=== PATIENT | male | born 1980 | race Caucasian/White ===

== ENCOUNTER 2022-05-03 11:43 | Outpatient (REF) | payer OTHER, SELFPAY ==
[2022-05-03 14:39] LABS: Influenza A PCR NEGATIVE (Negative); Influenza B PCR NEGATIVE (Negative); Resp Syncy Virus RNA Qual PCR NEGATIVE (Negative); SARS COV2 PCR INHOUSE POSITIVE (Negative)
== END 2022-05-03 11:44 | disposition home or self-care (01) ==
LOC: HO.LAB 11:43
PROVIDERS: Visit Provider Family Medicine
DX: Z20.822 Contact with and (suspected) exposure to COVID-19 (principal); B34.9 Viral infection, unspecified; R05.9 Cough, unspecified
CPT/HCPCS: 0241U

== ENCOUNTER 2022-05-29 09:13 | Outpatient (REF) | payer OTHER, SELFPAY ==
[2022-05-29 11:07] LABS: MANUAL DIFF FLAG NO
[2022-05-29 11:11] LABS: Basophils Percent Auto 0.9 % (0-2); Eosinophils Absolute Auto 0.2 X10*3/uL (0.0-0.4); Eosinophils Percent Auto 3.9 % (0-4); Hematocrit 50.3 % (42.0-52.0); Imm Gran Abs Auto 0.01 X10*3/uL (0.00-0.03); Imm Gran Pct Auto 0.2 % (0.0-0.4); Lymphocytes Absolute Auto 1.5 X10*3/uL (1.2-4.9); Lymphocytes Percent Auto 32.4 % (20-40); Mean Corpuscular HGB Conc 31.8 g/dl (31.0-36.0); Mean Corpuscular Hemoglobin 28.5 pg (27.0-33.0); Mean Corpuscular Volume 89.5 fL (80.0-98.0); Mean Platelet Volume 9.5 fL (9.4-12.4); Monocytes Absolute Auto 0.5 X10*3/uL (0.1-1.2); Neutrophils Absolute Auto 2.4 x10*3/uL (2.0-8.3); Neutrophils Percent Auto 52.6 % (45-73); Platelet Count 194 X10*3/uL (160-400); Red Blood Count 5.62 X10*6/uL (4.60-5.80); Red Cell Distribution Width 13.7 % (11.0-16.0); White Blood Count 4.6 X10*3/uL (4.8-10.8)
[2022-05-29 11:38] LABS: Alanine Aminotransferase 33 U/L (0-40); Albumin Level 4.3 g/dL (3.5-5.0); Alkaline Phosphatase 76 U/L (39-117); Anion Gap 14 (12-20); Aspartate Amino Transferase 23 U/L (5-37); Bilirubin Total 0.6 mg/dL (0.0-1.0); Blood Urea Nitrogen 19 mg/dL (9-16); Calcium 9.6 mg/dL (8.4-10.2); Carbon Dioxide 27 mmol/L (22-29); Chloride 107 mmol/L (96-108); Cholesterol 198 mg/dL; Estimated Glomerular Filt Rate > 60; Glucose Fasting 94 mg/dL (60-99); HDL Cholesterol 59 mg/dL; LDL Cholesterol Calculated 121 mg/dl; Sodium 143 mmol/L (135-145); Total Protein 7.3 g/dL (6.5-8.0); Triglycerides 94 mg/dL
[2022-05-29 11:45] LABS: Prostate Specific Antigen Scr 0.46 ng/mL (<0.05-4.0); TSH reflex Free T4 1.84 uIU/mL (0.32-4.0)
== END 2022-05-29 09:14 | disposition home or self-care (01) ==
LOC: HO.WFDLDS 09:13
PROVIDERS: Visit Provider Family Medicine
DX: Z00.00 Encounter for general adult medical examination without abnormal findings (principal); I82.401 Acute embolism and thrombosis of unspecified deep veins of right lower extremity; Z12.5 Encounter for screening for malignant neoplasm of prostate
CPT/HCPCS: 36415; 80053; 80061; 84153; 84443; 85025

== ENCOUNTER 2023-05-05 09:20 | Outpatient (AMB) | payer OTHER, SELFPAY ==
[2023-05-05 09:31] VITALS: BP 118/72; PULSE 83; O2SAT 96; BMI 38.4
--- NOTE | 2023-05-05 09:31 | A.OFFPC_ITS ---
Vital Signs 05/05/23 09:31 Height 6 ft 3 in Weight 307 lb BMI 38.4 BP 118/72 Blood Pressure Location Lt brachial Position Sitting Pulse 83 Pulse Source Pulse Oximeter Pulse Oximetry (%) 96 Oxygen Delivery Method Room Air Intake Visit Reasons: follow up arm infection Intake Note: Patient is here to follow up on right arm infection, had a bullseye spot from a tick bite. Allergies No Known Allergies Allergy (Verified 05/05/23 09:35) Tobacco use date assessed: 05/05/23 Dental Screening Dental Screen Date: 05/05/23 Did you have a dental visit in the last 12 months?: No Did you have a dental problem in the last 6 months where you did not have access to dental care?: No Was dental information given to patient?: Patient has dentist HPI follow up arm infection HPI Details 42 y/o male presents to f/u R arm infect ion. Pt reports he had a bullseye spot from a tick bite. Pt states he is on doxyclcine 100mg b.i.d. Pt has complaints of a plantar's wart. PFSH Surgical History No pertinent past surgical history Family History Paternal Grandmother Cancer Paternal Uncle Cancer Social History Household Members: Children Housing: House Are you a primary congregational care pastor to a significant other at home: No Do you presently have visiting nurse or other home services: No Patient Tobacco Use Status: Former Tobacco user e-Cigarette/Vaping Use: Never Used Second Hand Smoke Exposure: No service: No Current occupational status: employed Cognitive needs: No Hearing needs: No Vision needs: No Questionnaire PHQ-9 Over the last 2 weeks, how often have you been bothered by any of the following problems? 1. Little interest or pleasure in doing things: not at all 2. Feeling down, depressed, or hopeless: not at all 3. Trouble falling or staying asleep, or sleeping too much: not at all 4. Feeling tired or having little energy: not at all 5. Poor appetite or overeating: not at all 6. Feeling bad about yourself - or that you are a failure or have let yourself or your family down: not at all 7. Trouble concentrating on things, such as reading the newspaper or watching television: not at all 8. Moving or speaking so slowly that other people could have noticed. Or the opposite - being so fidgety or restless that you have been moving around a lot more than usual: not at all 9. Thoughts that you would be better off or of hurting yourself in some way: not at all Total score: 0 Source: Developed by Drs. Nikolas Lora, Tina Griffin, Jayesh Rodrigez and colleagues, with an educational dasha from [employer]. Thrive Questionnaire Date Thrive assessed: 05/05/23 I am a: Patient What is your living situation today?: I have a steady place to live Within the past 12 months, did the food you bought not last and you didn't have the money to get more?: Never true Within the past 12 months, did you worry whether your food would run out before you got money to buy more?: Never true Do you have trouble paying for medicines?: No Do you have trouble getting transportation to medical appointments?: No Do you have trouble paying your heating and electricity bill?: No Do you have trouble taking care of your child, family member or friend?: No Do you have trouble with day-to-day activities such as bathing, preparing meals, shopping, managing finances, etc.?: No Are you currently unemployed and looking for a job?: No Are you interested in more education?: No THRIVE Score: 0 AUDIT C Alcohol Use Questionnaire (AUDIT-C) 1. How often do you have a drink containing alcohol?: Monthly or less 2. How many drinks containing alcohol do you have on a typical day when you are drinking?: 3 or 4 3. How often do you have six or more drinks on one occasion?: Never Total Score: 2 KENDELL-7 AMB Questionnaire KENDELL-7 Date KENDELL - 7 assessed: 05/05/23 Feeling nervous, anxious, or on edge: 0 = Not at all Not being able to stop or control worryin = Not at all Worrying too much about different things: 0 = Not at all Trouble relaxin = Not at all Being so restless that it is hard to sit still: 0 = Not at all Becoming easily annoyed or irritable: 0 = Not at all Feeling afraid as if something awful might happen: 0 = Not at all Total KENDELL-7 score (0-4 normal; 5-9 mild; 10-14 moderate; 15-21 severe): 0 Source: Developed by Drs. Nikolas Lora, Tina Griffin, Jayesh Rodrigez and colleagues, with an educational dasha from [employer]. Physical exam (Primary Care) Vital Signs: Last Vital Signs Pulse 83 05/05/23 09:31 BP 118/72 05/05/23 09:31 Pulse Ox 96 05/05/23 09:31 Oxygen Delivery Method Room Air 05/05/23 09:31 BMI result Body Mass Index 38.4 Tobacco/Smoking Status: Tobacco use Status Tobacco use date assessed 05/05/23 05/05/23 09:38 Patient Tobacco Use Status Former Tobacco user 05/05/23 09:35 e-Cigarette/Vaping Use Never Used 05/05/23 09:35 PHQ-9: PHQ-9 Score PHQ-9: Total score 0 05/05/23 09:43 Thrive Assessment: Date of Thrive Assessment Date Thrive assessed 05/05/23 05/05/23 09:43 Skin Other: Faint rash on back of his R upper arm Extrem Other: 1.5cm plantar wart on heel Assessment and Plan Assessment & Plan (1) Tick bite: Code(s): W57.XXXA - Bitten or stung by nonvenomous insect and other nonvenomous arthropods, initial encounter Plan: Recent?tick?bite?a?couple?of?weeks?ago?and?was?started?on?3?weeks?doxycycline?10 0?mg?b.i.d. Likely?had?a?local?reaction?infection?at?the?site?the?tick?bite?but?this?has?ess entially?resolved. Advised?him?to?finish?all?doxycycline?to?eradicate?possible?Lyme?infection. (2) Infection of skin: Code(s): L08.9 - Local infection of the skin and subcutaneous tissue, unspecified Plan: As?above (3) History of DVT (deep vein thrombosis): Code(s): Z86.718 - Personal history of other venous thrombosis and embolism Plan: Continue?Xarelto Referred?back?to?[facility]?hematology-Oncology (4) Plantar wart: Code(s): B07.0 - Plantar wart Plan: Referred?to?Podiatry?for?large?left?heel?plantar?wart (5) Clotting disorder: Code(s): D68.9 - Coagulation defect, unspecified Plan: As?above,?refer?to?Hematology-Oncology Orders: Orders Complete Blood Count Auto Diff Today Z00.00 - Encounter for general adult medical examination without abnormal findings Lipid Panel Today Z00.00 - Encounter for general adult medical examination without abnormal findings Prostate Specific Antigen Scr Today Z12.5 - Encounter for screening for malignant neoplasm of prostate TSH reflex Free T4 Today Z00.00 - Encounter for general adult medical examination without abnormal findings Comprehensive [place]. Panel Fast Today Z00.00 - Encounter for general adult medical examination without abnormal findings Microalbumin, Random (w Creat) Today I10 - Essential (primary) hypertension UA and rflx microscopic Today Z00.00 - Encounter for general adult medical examination without abnormal findings Referrals Podiatry Referral B07.0 - Plantar wart Hematology & Oncology Referral D68.9 - Coagulation defect, unspecified, Z86.718 - Personal history of other venous thrombosis and embolism Coding Level of Care Code Est Pt Level 4 (76967) Diagnoses Tick bite W57.XXXA Infection of skin L08.9 History of DVT (deep vein thrombosis) Z86.718 Plantar wart B07.0 Clotting disorder D68.9
== END 2023-05-05 10:03 | disposition home or self-care (01) ==
PROVIDERS: PCP Family Medicine; Visit Provider Family Medicine
DX: D68.9 Coagulation defect, unspecified (principal); T63.481A Toxic effect of venom of other arthropod, accidental (unintentional), initial encounter; L08.9 Local infection of the skin and subcutaneous tissue, unspecified; Z86.718 Personal history of other venous thrombosis and embolism; B07.0 Plantar wart
CPT/HCPCS: 99214

== ENCOUNTER 2023-09-02 08:41 | Outpatient (AMB) | payer OTHER, SELFPAY ==
[2023-09-02 08:43] VITALS: BP 122/80; PULSE 96; O2SAT 99; BMI 38.9
--- NOTE | 2023-09-02 08:43 | MHC.PC.OV ---
Vital Signs 09/02/23 08:43 Height 6 ft 3 in Weight 311 lb 2 oz BMI 38.9 BP 122/80 Blood Pressure Location Lt brachial Position Sitting Pulse 96 Pulse Source Pulse Oximeter Pulse Oximetry (%) 99 Oxygen Delivery Method Room Air Intake Visit Reasons: CPE with f/u labs and health maint. Intake Note: Patient is here for his physical, he states he did not get a chance to his blood work. Allergies No Known Allergies Allergy (Verified 09/02/23 08:46) Tobacco use date assessed: 09/02/23 Dental Screening Dental Screen Date: 09/02/23 Did you have a dental visit in the last 12 months?: Yes Did you have a dental problem in the last 6 months where you did not have access to dental care?: No Was dental information given to patient?: Patient has dentist HPI CPE with f/u labs and health maint. HPI Details 42 y/o male presents for a CPE with f/u labs and health maintenance. No recent labs to review. Pt reports he has had a sleep study a number of years ago which did show some mild sleep apnea. Pt notes he tries to eat healthy. HPI Comments History of Present Illness Details Documentation assistance for Jeremias Morales MD, was provided by Melvin Garcia, Ladle Watcher on 09/02/2023 9:15 AM EST. I, Dr. Morales, have read, observed, and verified documentation. [facility] Surgical History No pertinent past surgical history Family History Paternal Grandmother Cancer Paternal Uncle Cancer Social History Household Members: Children Housing: House Are you a primary care process manager to a significant other at home: No Do you presently have visiting nurse or other home services: No Patient Tobacco Use Status: Former Tobacco user e-Cigarette/Vaping Use: Never Used Second Hand Smoke Exposure: No service: No Current occupational status: employed Cognitive needs: No Hearing needs: No Vision needs: No Questionnaire PHQ-9 Over the last 2 weeks, how often have you been bothered by any of the following problems? 1. Little interest or pleasure in doing things: not at all 2. Feeling down, depressed, or hopeless: not at all 3. Trouble falling or staying asleep, or sleeping too much: not at all 4. Feeling tired or having little energy: not at all 5. Poor appetite or overeating: not at all 6. Feeling bad about yourself - or that you are a failure or have let yourself or your family down: not at all 7. Trouble concentrating on things, such as reading the newspaper or watching television: not at all 8. Moving or speaking so slowly that other people could have noticed. Or the opposite - being so fidgety or restless that you have been moving around a lot more than usual: not at all 9. Thoughts that you would be better off or of hurting yourself in some way: not at all Total score: 0 Depression Screening Interpretation: Negative Depression Screening Done: Yes [id number] - PHQ-9 Billing: Yes Source: Developed by Drs. Nikolas Lora, Tina Griffin, Jayesh Rodrigez and colleagues, with an educational dasha from [employer]. Thrive Questionnaire Date Thrive assessed: 09/02/23 I am a: Patient What is your living situation today?: I have a steady place to live Within the past 12 months, did the food you bought not last and you didn't have the money to get more?: Never true Within the past 12 months, did you worry whether your food would run out before you got money to buy more?: Never true Do you have trouble paying for medicines?: No Do you have trouble getting transportation to medical appointments?: No Do you have trouble paying your heating and electricity bill?: No Do you have trouble taking care of your child, family member or friend?: No Do you have trouble with day-to-day activities such as bathing, preparing meals, shopping, managing finances, etc.?: No Are you currently unemployed and looking for a job?: No Are you interested in more education?: No THRIVE Score: 0 AUDIT C Alcohol Use Questionnaire (AUDIT-C) 1. How often do you have a drink containing alcohol?: 2-3 times a week 2. How many drinks containing alcohol do you have on a typical day when you are drinking?: 3 or 4 3. How often do you have six or more drinks on one occasion?: Never Total Score: 4 KENDELL-7 AMB Questionnaire KENDELL-7 Date KENDELL - 7 assessed: 09/02/23 Feeling nervous, anxious, or on edge: 0 = Not at all Not being able to stop or control worryin = Not at all Worrying too much about different things: 0 = Not at all Trouble relaxin = Not at all Being so restless that it is hard to sit still: 0 = Not at all Becoming easily annoyed or irritable: 0 = Not at all Feeling afraid as if something awful might happen: 0 = Not at all Total KENDELL-7 score (0-4 normal; 5-9 mild; 10-14 moderate; 15-21 severe): 0 Source: Developed by Drs. Nikolas Lora, Tina Griffin, Jayesh Rodrigez and colleagues, with an educational dasha from [employer]. KENDELL-7 Assessment Billing KENDELL-7 Assessment Tool: KENDELL-7 Assessment 64491 Review of Systems Const Denies chills, Denies fatigue, Denies fever(s), Denies headache(s) and Denies weakness Eyes Denies change in vision ENT Denies dizziness, Denies headache(s), Denies hearing loss, Denies nasal congestion, Denies sinus pain, Denies sinus pressure and Denies sore throat Card Denies chest pain, Denies lightheadedness, Denies dyspnea and Denies other (palpitations) Resp Denies cough, Denies dyspnea and Denies wheezing GI Denies abdominal pain, Denies melena, Denies hematochezia, Denies change in bowel habits, Denies dyspepsia and Denies nausea Denies hematuria and Denies dysuria Musc Denies abnormal gait, Denies myalgias, Denies arthralgias, Denies numbness and Denies tingling Skin/Breast Denies rash, Denies unusual bruising and Denies wounds Neuro Denies abnormal gait, Denies dizziness, Denies headache(s), Denies memory loss, Denies numbness, Denies Sensory deficit (Neuro), Denies tingling and Denies weakness Psych Denies anxiety, Denies depression and Denies memory loss Endo Denies cold intolerance, Denies fatigue, Denies heat intolerance, Denies polydipsia and Denies polyuria Cristóbal/Lymph Denies easy bleeding and Denies easy bruising Aller/Immun Denies wheezing Physical exam (Primary Care) Vital Signs: Last Vital Signs Pulse 96 09/02/23 08:43 BP 122/80 09/02/23 08:43 Pulse Ox 99 09/02/23 08:43 Oxygen Delivery Method Room Air 09/02/23 08:43 BMI result Body Mass Index 38.9 Tobacco/Smoking Status: Tobacco use Status Tobacco use date assessed 09/02/23 09/02/23 08:52 Patient Tobacco Use Status Former Tobacco user 09/02/23 08:52 e-Cigarette/Vaping Use Never Used 09/02/23 08:52 PHQ-9: PHQ-9 Score PHQ-9: Total score 0 09/02/23 08:52 Depression Screening Interpretation: Negative Thrive Assessment: Date of Thrive Assessment Date Thrive assessed 09/02/23 09/02/23 08:52 Const General: no acute distress, well developed, alert and awake Nutritional Appearance: well nourished and obese Orientation/consciousness: patient oriented x3 HENMT Head: Yes normocephalic and Yes atraumatic Ears: hearing grossly normal bilaterally and TM's normal bilaterally General nose exam: Normal external nose present and Normal nares present Mouth: Normal oral and palatal mucosa present and moist mucous membranes Teeth and gingiva: dentition normal Throat: Yes posterior oropharynx normal Eyes General: appearance normal, both eyes and all related structures Pupils: Equal, round and reactive pupils present and Pupil accommodation reflex normal EOM: EOMs intact bilaterally Neck Neck: Yes normal visual inspection, Yes no lymphadenopathy and Yes trachea midline Thyroid: Thyroid normal Carotids: no bruits Lymphatic: no lymphadenopathy noted Chest Chest palpation & inspection: normal inspection of the chest Resp Effort & Inspection: normal respiratory effort Auscultation: clear to auscultation bilaterally Cardio Rate: regular rate Rhythm: regular rhythm Heart sounds: S1 normal heart sound present, S2 normal heart sound present, no gallops, no murmurs and no rubs Bruits: no abdominal aortic bruits and no carotid bruits GI Palpation (GI): No Abdominal aortic bruit present, Soft to palpation, nontender, No hepatosplenomegaly present and No Rebound tenderness present Auscultation: normal bowel sounds General: Yes no CVA tenderness Back/Spine/Pelvis Back: no CVA tenderness Cervical Spine: cervical ROM normal and No Cervical spine tenderness Thoracic/Lumbar Spine: thoraco-lumbar ROM normal, No pain with thoraco-lumbar ROM, No thoracic spinal tenderness and No lumbar spinal tenderness Skin Other: Mild ringworm on anteromedial aspect of his upper R arm Lesions: no lesions Rashes: no rashes Trauma: no lacerations or abrasions Wounds: no wounds Nails: normal Neuro General: patient oriented x3 Cranial nerves: Yes Equal, round and reactive pupils present Cognition (Neuro): normal cognition Gait exam (Neuro): Normal gait present Motor exam (neuro): 5/5 motor strength present throughout Sensory Exam: No Sensory deficit (Neuro) Deep tendon reflexes (DTR's): Right patellar reflex intensity grade: 2+ and Left patellar reflex intensity grade: 2+ Extrem General: Yes normal to inspection and No edema Psych Appearance: grossly normal Affect: normal affect Attitude: cooperative Thought process: Normal thought process present Assessment and Plan Assessment & Plan (1) Adult general medical exam: Code(s): Z00.00 - Encounter for general adult medical examination without abnormal findings Plan: 2-year-old?male?presents?for?complete?physical?exam Encouraged?healthy?diet?with?active?lifestyle?and?plenty?of?exercise (2) Sleep apnea: Code(s): G47.30 - Sleep apnea, unspecified Plan: Patient?notes?history?of?mild?sleep?apnea?by?a?sleep?study?greater?than?2?years?ago Offered?referral?to?Sleep?Medicine?or?ENT.??He?declines?these?for?now He?will?let?me?know?if?symptoms?worsen. 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 Avoid?excess?moisture?and?change?short?part?way?through?day. Will?give?him?a?script?for?terbinafine Medications: New terbinafine HCl 1% (Antifungal (terbinafine)) 1 appl topical BID 14 days 15 grams 1RF Coding Level of Care Code Est Pt Level 3 (00999) Est Pt Prev Care 40-64y(84334) Diagnoses Adult general medical exam Z00.00 Sleep apnea G47.30 Ringworm B35.9 Additional Codes KENDELL-7 Assessment Billing - KENDELL-7 Assessment Tool: KENDELL-7 Assessment 60482 ([id number])
== END 2023-09-02 10:29 | disposition home or self-care (01) ==
PROVIDERS: PCP Family Medicine; Visit Provider Family Medicine
DX: Z00.00 Encounter for general adult medical examination without abnormal findings (principal); G47.30 Sleep apnea, unspecified; B35.9 Dermatophytosis, unspecified
CPT/HCPCS: 99213; 99396

== ENCOUNTER 2023-09-09 08:11 | Outpatient (REF) | payer OTHER, SELFPAY ==
[2023-09-09 10:22] LABS: MANUAL DIFF FLAG NO
[2023-09-09 10:31] LABS: Appearance Urine Clear; Color Urine Yellow; Glucose Urine UA Negative (Negative); Leukocyte Esterase Urine Negative (Negative); Nitrite Urine Negative (Negative); Specific Gravity - Urine 1.025 (1.005-1.025); Urine Blood Negative (Negative); Urine Ketones Negative (Negative); Urine Protein Negative (Neg-Trace)
[2023-09-09 10:40] LABS: Basophils Absolute Auto 0.1 X10*3/uL (0.0-0.2); Basophils Percent Auto 0.9 % (0-2); Eosinophils Absolute Auto 0.3 X10*3/uL (0.0-0.4); Eosinophils Percent Auto 4.7 % (0-4); Hematocrit 48.8 % (42.0-52.0); Hemoglobin 15.6 g/dl (14.0-18.0); Imm Gran Abs Auto 0.02 X10*3/uL (0.00-0.03); Imm Gran Pct Auto 0.4 % (0.0-0.4); Lymphocytes Absolute Auto 1.7 X10*3/uL (1.2-4.9); Lymphocytes Percent Auto 32.1 % (20-40); Mean Corpuscular Hemoglobin 28.4 pg (27.0-33.0); Mean Corpuscular Volume 88.9 fL (80.0-98.0); Mean Platelet Volume 9.5 fL (9.4-12.4); Monocytes Absolute Auto 0.5 X10*3/uL (0.1-1.2); Monocytes Percent Auto 9.7 % (2-11); Neutrophils Absolute Auto 2.8 x10*3/uL (2.0-8.3); Neutrophils Percent Auto 52.2 % (45-73); Platelet Count 221 X10*3/uL (160-400); Red Blood Count 5.49 X10*6/uL (4.60-5.80); Red Cell Distribution Width 13.1 % (11.0-16.0); White Blood Count 5.4 X10*3/uL (4.8-10.8)
[2023-09-09 11:04] LABS: Alanine Aminotransferase 25 U/L (0-40); Albumin Level 4.2 g/dL (3.5-5.0); Alkaline Phosphatase 79 U/L (39-117); Anion Gap 12 (12-20); Aspartate Amino Transferase 19 U/L (5-37); Bilirubin Total 0.4 mg/dL (0.0-1.0); Blood Urea Nitrogen 16 mg/dL (9-16); Calcium 9.3 mg/dL (8.4-10.2); Carbon Dioxide 25 mmol/L (22-29); Chloride 108 mmol/L (96-108); Cholesterol 184 mg/dL (<200); Estimated Glomerular Filt Rate > 60; Glucose Fasting 103 mg/dL (60-99); HDL Cholesterol 51 mg/dL (>40); LDL Cholesterol Calculated 113 mg/dL (<100); Potassium 4.2 mmol/L (3.3-5.1); Sodium 141 mmol/L (135-145); Total Protein 7.6 g/dL (6.5-8.0); Triglycerides 101 mg/dL (<150)
[2023-09-09 11:07] LABS: Microalbum/Creatinine Ratio Ur 3.7 ug/mg cr (<30)
[2023-09-09 11:20] LABS: TSH reflex Free T4 2.21 uIU/mL (0.32-4.0)
[2023-09-09 11:44] LABS: Prostate Specific Antigen Scr 0.38 ng/mL (<0.05-4.0)
== END 2023-09-09 08:12 | disposition home or self-care (01) ==
LOC: HO.HMGCLDS 08:11
PROVIDERS: PCP Family Medicine; Visit Provider Family Medicine
DX: Z00.00 Encounter for general adult medical examination without abnormal findings (principal); I10 Essential (primary) hypertension; Z12.5 Encounter for screening for malignant neoplasm of prostate
CPT/HCPCS: 36415; 80053; 80061; 81003; 82043; 82570; 84153; 84443; 85025

== ENCOUNTER 2023-09-19 08:51 | Outpatient (AMB) | payer OTHER, SELFPAY ==
--- NOTE | 2023-09-19 08:54 | A.OFFPC_ITS ---
Vital Signs 09/19/23 09:04 09/19/23 09:08 Height 6 ft 3 in Weight 306 lb 6 oz BMI 38.3 BP 137/103 H 125/92 H Blood Pressure Location Lt brachial Rt brachial Position Sitting Sitting Respiration 16 Pulse 80 Pulse Source Pulse Oximeter Temp 99.0 F Temp Source Temporal Artery Scan Pulse Oximetry (%) 95 Oxygen Delivery Method Room Air Intake Visit Reasons: Strep throat Intake Note: Sore throat, hard time swallowing. Allergies No Known Allergies Allergy (Verified 09/19/23 09:02) Tobacco use date assessed: 09/02/23 Dental Screening Dental Screen Date: 09/02/23 HPI Strep throat HPI Onset 09/17/23 Location [place] Characteristics of symptom or complaint Sore, red Aggravating or associated factors No fevers Treatment No prior [facility] Medical History (Updated 09/19/23 @ 09:06 by Dolores Carlton CMA) Sore throat Surgical History No pertinent past surgical history Family History Paternal Grandmother Cancer Paternal Uncle Cancer Social History Household Members: Children Housing: House Are you a primary patient care to a significant other at home: No Do you presently have visiting nurse or other home services: No Patient Tobacco Use Status: Former Tobacco user e-Cigarette/Vaping Use: Never Used Second Hand Smoke Exposure: No service: No Current occupational status: employed Cognitive needs: No Hearing needs: No Vision needs: No Questionnaire Thrive Questionnaire Date Thrive assessed: 09/02/23 KENDELL-7 AMB Questionnaire KENDELL-7 Date KENDELL - 7 assessed: 09/02/23 Source: Developed by Drs. Nikolas Lora, Tina Griffin, Jayesh Rodrigez and colleagues, with an educational dasha from [employer]. Review of Systems Const Details: see hpi Physical exam (Primary Care) Vital Signs: Last Vital Signs Temp 99.0 F 09/19/23 09:04 Pulse 80 09/19/23 09:04 Resp 16 09/19/23 09:04 BP 125/92 H 09/19/23 09:08 Pulse Ox 95 09/19/23 09:04 Oxygen Delivery Method Room Air 09/19/23 09:04 PHYSICAL EXAM: GENERAL: Alert and oriented x 3. NAD EYES: EOMI. Anicteric. HENT: Erythematous 1+ tonsils with scant exudate LUNGS: Clear to auscultation bilaterally. CARDIOVASCULAR: Regular rate and rhythm. ABDOMEN: Soft, non-tender +bs EXTREMITIES: No edema. Non-tender. SKIN: No rashes or lesions. Warm. NEUROLOGIC: No focal neurological deficits. PSYCHIATRIC: Cooperative. Appropriate mood and affect BMI result Body Mass Index 38.3 Tobacco/Smoking Status: Tobacco use Status Tobacco use date assessed 09/02/23 09/19/23 08:55 Patient Tobacco Use Status Former Tobacco user 09/19/23 08:55 e-Cigarette/Vaping Use Never Used 09/19/23 08:55 Thrive Assessment: Date of Thrive Assessment Date Thrive assessed 09/02/23 09/19/23 08:55 Results AMB Rapid Strep AMB Rapid Strep Positive Last Edit by Dolores Carlton CMA on 09/19/23 09:0 8 Results Reviewed Results Reviewed: Laboratory Last Values Strep Scn Rapid [facility] Positive 09/19/23 09:06 Assessment and Plan Assessment & Plan (1) Strep pharyngitis: Code(s): J02.0 - Streptococcal pharyngitis Plan: Pen V 500mg TID x 10 days. Change toothbrush. Call if symptoms persist or recur Orders: Orders AMB Rapid Strep Screen Today J02.9 - Acute pharyngitis, unspecified Medications: New penicillin V potassium 500 mg PO TID 10 days 30 tabs 0RF Coding Level of Care Code Est Pt Level 4 (11066) Diagnoses Strep pharyngitis J02.0
[2023-09-19 09:04] VITALS: BP 137/103; PULSE 80; RESP 16; TEMP 37.2; O2SAT 95; BMI 38.3
[2023-09-19 09:08] VITALS: BP 125/92
== END 2023-09-19 11:56 | disposition home or self-care (01) ==
PROVIDERS: PCP Family Medicine; Visit Provider Internal Medicine
DX: J02.0 Streptococcal pharyngitis (principal); J02.9 Acute pharyngitis, unspecified
CPT/HCPCS: 87880; 99214

== ENCOUNTER → 2023-09-25 14:02 | Outpatient (AMB) | payer OTHER, SELFPAY ==
--- NOTE | 2023-09-25 13:58 | MHC.PC.OV ---
Intake Visit Reasons: 2-3 wks telehealth labs Intake Note: Patient is scheduled to follow up on labs. Allergies No Known Allergies Allergy (Verified 09/25/23 13:59) Tobacco use date assessed: 09/25/23 Dental Screening Dental Screen Date: 09/02/23 HPI 2-3 wks telehealth labs HPI Details 42 y/o male presents to f/u CPE-labs via telemedicine. Labs were drawn 09/09/23. Reviewed labs with pt. Elevated fasting glucose of 103. He notes he may not have had a full fast. Triglycerides 101. TC 184. LDL 113. HDL 51. PSA level 0.38. PFSH Medical History Sore throat Surgical History No pertinent past surgical history Family History Paternal Grandmother Cancer Paternal Uncle Cancer Social History Household Members: Children Housing: House Are you a primary director of home care hospice to a significant other at home: No Do you presently have visiting nurse or other home services: No Patient Tobacco Use Status: Former Tobacco user e-Cigarette/Vaping Use: Never Used Second Hand Smoke Exposure: No service: No Current occupational status: employed Cognitive needs: No Hearing needs: No Vision needs: No Questionnaire Thrive Questionnaire Date Thrive assessed: 09/02/23 KENDELL-7 AMB Questionnaire KENDELL-7 Date KENDELL - 7 assessed: 09/02/23 Source: Developed by Drs. Nikolas Lora, Tina Griffin, Jayesh Rodrigez and colleagues, with an educational dasha from [employer]. Review of Systems Const Denies chills, Denies fatigue, Denies fever(s), Denies headache(s) and Denies weakness ENT Denies dizziness and Denies headache(s) Card Denies dyspnea Resp Denies cough, Denies dyspnea, Denies wheezing and Denies other (shortness of breath) Musc Denies numbness and Denies tingling Neuro Denies dizziness, Denies headache(s), Denies numbness, Denies tingling and Denies weakness Psych Denies anxiety and Denies depression Endo Denies fatigue Aller/Immun Denies wheezing Physical exam (Primary Care) Tobacco/Smoking Status: Tobacco use Status Tobacco use date assessed 09/25/23 09/25/23 14:02 Patient Tobacco Use Status Former Tobacco user 09/25/23 13:58 e-Cigarette/Vaping Use Never Used 09/25/23 13:58 Thrive Assessment: Date of Thrive Assessment Date Thrive assessed 09/02/23 09/25/23 13:58 Telehealth Telehealth Telehealth Platform: Telephone Location of provider rendering services: practice address Location of patient: address on file Patient Identification confirmed using: Name, : Yes Telehealth method: voice only Patient verbally consented to treatment: Yes Patient verbally consented to billing insurance company: Yes Patient informed of any privacy concerns related to visit: Yes Minutes spent on Phone/Video with Pt.: 10 Assessment and Plan Assessment & Plan (1) Elevated fasting glucose: Code(s): R73.01 - Impaired fasting glucose Plan: Patient?notes?that?he?did?not?have?a?full?10+ hour?fast He?will?repeat?this?and?I?will?check?an?A1c?as?well (2) Elevated LDL cholesterol level: Code(s): E78.00 - Pure hypercholesterolemia, unspecified Plan: As?above,?patient?did?not?have?a?full?fast Will?repeat?prior?to?next?telemedicine?appointment?for?follow-up (3) Screening for prostate cancer: Code(s): Z12.5 - Encounter for screening for malignant neoplasm of prostate Plan: PSA?was?within?normal?range Will?continue?annual?screening Orders: Orders Hemoglobin A1c Today R73.01 - Impaired fasting glucose Lipid Panel Today E78.00 - Pure hypercholesterolemia, unspecified, Z00.00 - Encounter for general adult medical examination without abnormal findings Comprehensive [place]. Panel Fast Today E78.00 - Pure hypercholesterolemia, unspecified, Z00.00 - Encounter for general adult medical examination without abnormal findings Coding Level of Care Code Tele Est Pt Level 2 (49143) Diagnoses Elevated fasting glucose R73.01 Elevated LDL cholesterol level E78.00 Screening for prostate cancer Z12.5
== END ==
PROVIDERS: PCP Family Medicine; Visit Provider Family Medicine
DX: R73.01 Impaired fasting glucose (principal); E78.00 Pure hypercholesterolemia, unspecified; Z12.5 Encounter for screening for malignant neoplasm of prostate
CPT/HCPCS: 99212

== ENCOUNTER → 2024-05-07 08:35 | Outpatient (BNVA) | payer OTHER, SELFPAY | PROVIDERS: PCP Family Medicine; Visit Provider Nurse Practitioner Family | DX: M79.631 Pain in right forearm (principal); M25.531 Pain in right wrist | CPT/HCPCS: 99212 ==

== ENCOUNTER 2025-01-12 09:03 | Outpatient (AMB) | payer OTHER, SELFPAY ==
[2025-01-12 09:12] VITALS: BP 114/80; PULSE 85; TEMP 36.7; O2SAT 96; BMI 38.0
--- NOTE | 2025-01-12 09:12 | MHC.OFFWIV ---
Intake Vital Signs 01/12/25 09:12 Height 6 ft 4 in Weight 312 lb BMI 38.0 BP 114/80 Blood Pressure Location Lt brachial Position Sitting Pulse 85 Pulse Source Pulse Oximeter Temp 98.1 F Temp Source Oral Pulse Oximetry (%) 96 Oxygen Delivery Method Room Air Intake Visit Reasons: EP Ear popping Intake Note: pt presents with RT ear popping without pain for about 1.5 weeks Patient Tobacco Use Status: Former Tobacco user Allergies No Known Allergies Allergy (Verified 01/12/25 09:16) Do you need a note to return to daycare/school/sports/work: No HPI HPI Comments History of Present Illness Details History - The patient is a 44-year-old male presenting with right ear popping and irritation. - Reports a popping sensation in the right ear for a week and a half, with occasional hearing changes and a sensation similar to being underwater. - No significant pain reported, and the popping occurs briefly before resolving. - Attempted ear flushing resulted in minimal drainage. - History of allergic rhinitis, with recent exacerbation two to three weeks ago, likely contributing to residual fluid in the ear. - Current medications include Xarelto, with no recent use of allergy medications. Physical Exam General: Cooperative, healthy appearing, comfortable, no acute distress and well developed Orientation: Patient oriented x3 Limitations: No limitations Head: Normal to inspection Ears: Right EAC with erythema and edema and some purulent material, TM with fluid and scar, external ear normal bilaterally Face and sinus: Normal facial exam Neck: Normal visual inspection and Yes full ROM Respiratory: Normal respiratory effort and able to speak in complete sentences. Skin: No rashes or lesions noted Neuro: Patient oriented x3 Extremities: normal to inspection Review of Systems - Ears: Reports popping sensation in the right ear, occasional hearing changes, and sensation similar to being underwater. Denies significant pain. - Allergic/Immunologic: Reports history of allergic rhinitis with recent exacerbation. All systems reviewed and are unremarkable except as noted in HPI [facility] Medical History Sore throat Surgical History No pertinent past surgical history Family History Paternal Grandmother Cancer Paternal Uncle Cancer Social History Household Members: Children Housing: House Are you a primary director of critical care to a significant other at home: No Do you presently have visiting nurse or other home services: No Patient Tobacco Use Status: Former Tobacco user e-Cigarette/Vaping Use: Never Used Second Hand Smoke Exposure: No service: No Current occupational status: employed Cognitive needs: No Hearing needs: No Vision needs: No Physical Exam Vital Signs: Last Vital Signs Temp 98.1 F 01/12/25 09:12 Pulse 85 01/12/25 09:12 BP 114/80 01/12/25 09:12 Pulse Ox 96 01/12/25 09:12 Oxygen Delivery Method Room Air 01/12/25 09:12 BMI result Body Mass Index 38.0 Assessment & Plan Assessment & Plan (1) Otitis externa: Code(s): H60.90 - Unspecified otitis externa, unspecified ear Qualifiers: Otitis externa type: diffuse Chronicity: acute Laterality: right Qualified Code(s): H60.311 - Diffuse otitis externa, right ear Plan: Plan - Prescribe ear drops containing prednisone and an antibiotic to be used four times daily for one week to address ear canal irritation and infection. - Recommend use of Flonase and antihistamines for two weeks to manage fluid in the ear and address allergic rhinitis. - Advise on proper nasal spray technique to enhance efficacy and reduce fluid retention. Patient was informed and verbally consented to the use of an ambient scribe for clinic note documentation during this visit. Medications: New [id number] 3.5-10,000-1 mg/mL-unit/mL-% 4 drps otic (ear) right QID 10 mL 0RF 7 days Coding Level of Care Code Est Pt Level 3 (80262) Diagnoses Acute diffuse otitis externa of right ear H60.311 Otitis externa type: diffuse Chronicity: acute Laterality: right
== END 2025-01-12 09:48 | disposition home or self-care (01) ==
PROVIDERS: PCP Family Medicine; Visit Provider Physician Assistant
DX: H60.311 Diffuse otitis externa, right ear (principal)

== ENCOUNTER → 2025-01-12 09:03 | Outpatient (BNVA) | payer OTHER, SELFPAY | PROVIDERS: PCP Family Medicine; Visit Provider Physician Assistant | DX: H60.311 Diffuse otitis externa, right ear (principal); J30.9 Allergic rhinitis, unspecified | CPT/HCPCS: 99212 ==